=== PATIENT | female | born 1970 | race American Indian/Alaskan Native ===

== ENCOUNTER 2021-12-19 23:43 | Emergency (ER) | payer SELFPAY ==
[2021-12-20 00:45] VITALS: BP 143/87
--- NOTE | 2021-12-20 11:52 | Emergency Department Report ---
ED General Adult HPI - General Chief complaint: Fall Stated complaint: FALL BODY PAIN Time Seen by Provider: 12/20/21 11:26 Source: patient Mode of arrival: Ambulatory Limitations: No Limitations - History of Present Illness Initial comments: Patient is 51 years old female with history of end-stage renal disease on hemodialysis. Patient brought to the emergency room via EMS from local dialysis center for evaluation of low hemoglobin. Patient presented to dialysis center today and she had a hemoglobin checked today and found that it was 6. Patient currently denying any hematemesis, hematochezia, melena, hemoptysis. Patient is not on any blood thinner medicine. -: This morning Associated Symptoms: denies other symptoms - Related Data Allergies Allergy/AdvReac Type Severity Reaction Status Date / Time dog dander Allergy Hives Verified 12/20/21 00:41 morphine Allergy Shortness Verified 12/20/21 00:41 of Breath ED Review of Systems ROS: Stated complaint: FALL BODY PAIN Other details as noted in HPI Comment: All other systems reviewed and negative Constitutional: denies: chills, fever Respiratory: shortness of breath. denies: cough, SOB with exertion, SOB at rest, wheezing Cardiovascular: denies: chest pain, palpitations Gastrointestinal: denies: abdominal pain, nausea, vomiting, diarrhea, constipation, hematemesis, melena, hematochezia Musculoskeletal: denies: back pain Neurological: denies: headache, weakness ED Past Medical Hx - Past Medical History Previous Medical History?: Yes Additional medical history: HYPERTHYROIDISM - Surgical History Past Surgical History?: Yes Hx Cholecystectomy: Yes Additional Surgical History: THYROIDECTOMY, TONSILLECTOMY - Social History Smoking Status: Never Smoker Substance Use Type: None ED Physical Exam - General Limitations: No Limitations General appearance: alert, in no apparent distress - Head Head exam: Present: atraumatic, normocephalic, normal inspection - Eye Eye exam: Present: normal appearance - ENT ENT exam: Present: normal exam, normal orophraynx, mucous membranes moist - Neck Neck exam: Present: normal inspection, full ROM. Absent: tenderness, meningismus - Respiratory Respiratory exam: Present: normal lung sounds bilaterally - Cardiovascular Cardiovascular Exam: Present: regular rate, normal rhythm, normal heart sounds - GI/Abdominal GI/Abdominal exam: Present: soft, normal bowel sounds. Absent: distended, tenderness, guarding, rebound, rigid, mass, bruit, pulsatile mass - Neurological Exam Neurological exam: Present: alert, oriented X3, CN II-XII intact - Psychiatric Psychiatric exam: Present: normal mood ED Course Vital Signs 12/20/21 00:44 Pulse Rate 71 Respiratory 18 Rate Blood Pressure 143/87 [Left] O2 Sat by Pulse 99 Oximetry ED Medical Decision Making - Lab Data Result diagrams: 12/20/21 11:48 12/20/21 11:48 Critical care attestation.: If time is entered above; I have spent that time in minutes in the direct care of this critically ill patient, excluding procedure time. ED Disposition Condition: Stable Referrals: ISRAEL HNERIQUEZ MD [Primary Care Provider] - 3-5 Days
--- NOTE | 2021-12-20 12:27 | XRay Report ---
CHEST 1 VIEW 12/20/2021 11:53 AM INDICATION / CLINICAL INFORMATION: SOB. COMPARISON: None available. FINDINGS: SUPPORT DEVICES: None. HEART / MEDIASTINUM: Upper limits normal heart size. LUNGS / PLEURA: Pulmonary vascular indistinctness. No focal consolidation. No pneumothorax. ADDITIONAL FINDINGS: No significant additional findings. IMPRESSION: 1. Mild pulmonary edema. Signer Name: Cliff Russo DO Signed: 12/20/2021 12:23 PM Workstation Name: [id number]
[2021-12-20 14:05] LABS: Basophils % (Auto) 0.4 % (0.0-1.8); Eosinophils # (Auto) 0.1 K/mm3 (0.0-0.4); Eosinophils % (Auto) 0.8 % (0.0-4.3); Hemoglobin 6.3 gm/dl (10.1-14.3); Lymphocytes # (Auto) 1.7 K/mm3 (1.2-5.4); Lymphocytes % (Auto) 25.9 % (13.4-35.0); Mean Corpuscular HGB Conc 32 % (30-34); Mean Corpuscular Volume 83 fl (79-97); Monocytes # (Auto) 0.8 K/mm3 (0.0-0.8); Monocytes % (Auto) 11.5 % (0.0-7.3); Platelet Count 224 K/mm3 (140-440); Red Blood Count 2.35 M/mm3 (3.65-5.03)
[2021-12-20 14:13] LABS: Hematocrit 19.5 % (30.3-42.9); Red Cell Distribution Width 20.2 % (13.2-15.2)
[2021-12-20 14:18] LABS: Partial Thromboplastin Time 37.4 Sec. (24.2-36.6)
[2021-12-20 14:24] LABS: Alanine Aminotransferase < 5 units/L (7-56); Albumin 2.4 g/dL (3.9-5); BUN/Creatinine Ratio 4; Bilirubin,Direct 0.2 mg/dL (0-0.2); Blood Urea Nitrogen 16 mg/dL (7-17); Calcium 8.3 mg/dL (8.4-10.2); Hemolysis Index 16
[2021-12-20] MEDS ORDERED: SODIUM CHLORIDE 0.9% 500 ML 500 ML IV ONE (14:37)
[2021-12-20 14:44] LABS: INR 1.23 (0.87-1.13)
== END 2021-12-21 09:46 | disposition left against medical advice (07) ==
LOC: ED 23:43
DX: M54.9 Dorsalgia, unspecified (principal); M54.2 Cervicalgia; Z53.21 Procedure and treatment not carried out due to patient leaving prior to being seen by health care provider; W19.XXXA Unspecified fall, initial encounter; Y93.89 Activity, other specified; Y92.89 Other specified places as the place of occurrence of the external cause; Y99.8 Other external cause status
CPT/HCPCS: 36415; 36430; 71045; 80048; 80076; 85025; 85610; 85730; 86850; 86900; 86901; 86920; 99283